=== PATIENT | male | born 1960 | race Caucasian/White ===

== ENCOUNTER 2024-03-16 07:30 | Outpatient (OUT) | payer SELFPAY | END 2024-03-16 07:31 | disposition home or self-care (01) | LOC: PST 07:30 | PROVIDERS: Visit Provider Urology | DX: Z01.818 Encounter for other preprocedural examination (principal); N40.1 Benign prostatic hyperplasia with lower urinary tract symptoms; J44.9 Chronic obstructive pulmonary disease, unspecified; I25.10 Atherosclerotic heart disease of native coronary artery without angina pectoris; I10 Essential (primary) hypertension; E78.5 Hyperlipidemia, unspecified; N52.9 Male erectile dysfunction, unspecified ==

== ENCOUNTER 2024-03-17 09:57 | Day surgery (SDC) | payer MEDICARE, SELFPAY ==
[2024-03-17] VITALS (15 sets, daily range): BP systolic 109–175; BP diastolic 62–95; PULSE 59–92; TEMP 36.1–36.8; O2SAT 93–98; BMI 27.7
[2024-03-17 10:26] LABS: INR 0.98; Partial Thromboplastin Time 28.9 sec (22.3-36.2); Prothrombin Time 10.4 sec (9.0-11.6)
[2024-03-17] MEDS: LACTATED RINGER'S SOLUTION 1,000 ML 50 ML IV (10:47)
[2024-03-17] MEDS: LEVOFLOXACIN IN DEXTROSE 5 % 500 MG/100 ML PREMIX 100 MG IV (11:16)
--- NOTE | 2024-03-17 12:20 | PM.URSON ---
Urology Surgery Operative Note Operative Note Procedure Date: 03/17/24 Time Out Performed: yes Pre-op Diagnosis: BPH with LUTS refractory to medications. Post-op Diagnosis: same as pre-op Procedures performed: 1. Cystoscopy. 2. Transurethral resection of the prostate. Anesthesia: GETA Primary Surgeon: Franck Wise Complications: None Estimated blood loss (mL): 15 Findings: Trilobar obstruction. Specimens: Prostate chips. Drains: 22 Cam[place]onian three-way coud? Caal catheter in the bladder taped to traction and CBI Indications for Procedures: This gentleman has BPH with LUTS. He has been taking Flomax but the benefits have been waning rapidly. Endoscopically he is obstructed in a trilobar fashion. Urodynamically he is also obstructed. He is strongly desirous for TURP. He has signed an informed consent after risks were explained. Some of these risks include bleeding, infection, anesthesia, urinary incontinence both temporary and permanent, retrograde ejaculation, erectile dysfunction, and possible need for further operations. Detailed description of Procedure: The patient was brought to the operating room and placed on the operating room table in the supine position. SCDs were placed on the lower extremities and turned on and functioning during the entire case. Timeout was done by all parties in the room. We all agreed upon the patient's identification and the planned procedures for this patient. Genn. anesthesia was then administered. The patient was then repositioned into the modified dorsal lithotomy position. All pressure points were satisfactorily padded. Genitalia were sterilely prepped and draped in usual fashion. I started by passing a 26 [place] Chet resectoscope with a standard bipolar loop electrode per urethra and into the bladder. The ureteral orifices were marked with a loop electrode. I then uniformly resected the median lobe down to the bladder neck level. I then resected posteriorly from the bladder neck to the Pilar level. I then resected the left lateral lobe similarly from the bladder neck to the Veru level. The right lateral lobe and the anterior tissue were then resected similarly. The scope was brought back to the apex. The apex was still coapting and I uniformly resected these portions of the lateral lobes to relieve the obstruction. The Ilich evacuator was used to get the chips out of the bladder and these were sent for permanent sections. The resection bed was coagulated. Upon completion, with the scope at the Veru, the prostatic urethra and bladder neck were now wide open. There was no bleeding. There were no chips remaining in the bladder. The scope was then removed. I then placed a 22 Cam[place]onian three-way coud? Caal catheter in the bladder. It was manually irrigated. 30 cc of fluid was placed in the balloon. CBI was started. It was taped to traction and it irrigated clear. The anesthetic was then reversed. He was then transferred to a [place] bed and wheeled to PACU in stable condition. Urinary Catheter Management Urinary Catheter Management 3-way Urethral: Cath placed during this visit: no
[2024-03-17] MEDS: SOLIFENACIN SUCCINATE 10 MG TABLET PO (12:34)
[2024-03-17] MEDS: 0.9 % SODIUM CHLORIDE 1,000 ML 80 ML IV (12:41)
[2024-03-17] MEDS: SODIUM CHLORIDE IRRIG SOLUTION 3,000 ML 3000 ML IRR ×4 (13:45→18:18)
[2024-03-17] MEDS: METOPROLOL TARTRATE 25 MG TABLET 12.5 MG PO (21:16)
[2024-03-17] MEDS: CEFAZOLIN SODIUM/DEXTROSE,ISO 1 GM/50 ML PREMIX IV (21:16)
[2024-03-18] MEDS: SODIUM CHLORIDE IRRIG SOLUTION 3,000 ML 3000 ML IRR ×2 (00:11→03:38)
[2024-03-18] MEDS: 0.9 % SODIUM CHLORIDE 1,000 ML 80 ML IV (00:22)
[2024-03-18 03:00] VITALS: BP 124/75; PULSE 86; TEMP 36.4; O2SAT 93
[2024-03-18] MEDS: CEFAZOLIN SODIUM/DEXTROSE,ISO 1 GM/50 ML PREMIX IV (03:38)
--- NOTE | 2024-03-18 05:15 | PC.NURSE ---
0500 traction tape removed from left thigh at this time. Continuous bladder irrigation weaned to off at this time. Continuous bladder irrigation removed from catheter. Catheter plug in place to where continuos bladder irrigation was infusing.
[2024-03-18 07:00] VITALS: BP 161/77; PULSE 64; TEMP 36.6; O2SAT 95
[2024-03-18] MEDS: SOLIFENACIN SUCCINATE 10 MG TABLET PO (08:12)
[2024-03-18] MEDS: METOPROLOL TARTRATE 25 MG TABLET 12.5 MG PO (08:12)
[2024-03-18] MEDS: LISINOPRIL 20 MG TABLET PO (08:12)
[2024-03-18] MEDS: ASPIRIN 81 MG TABLET.DR PO (08:12)
== END 2024-03-18 08:55 | disposition home or self-care (01) ==
LOC: SURGOUT 12:16 → MS 12:47
PROVIDERS: Visit Provider Urology
PROC: (CPT 52601; principal; 2024-03-17 11:10)
DX: N40.1 Benign prostatic hyperplasia with lower urinary tract symptoms (principal); C61 Malignant neoplasm of prostate; J44.9 Chronic obstructive pulmonary disease, unspecified; I25.10 Atherosclerotic heart disease of native coronary artery without angina pectoris; I10 Essential (primary) hypertension; E78.5 Hyperlipidemia, unspecified; Z79.84 Long term (current) use of oral hypoglycemic drugs; F17.290 Nicotine dependence, other tobacco product, uncomplicated; Z95.1 Presence of aortocoronary bypass graft; G47.33 Obstructive sleep apnea (adult) (pediatric); I25.2 Old myocardial infarction; Z95.5 Presence of coronary angioplasty implant and graft; R97.20 Elevated prostate specific antigen [PSA]; N52.9 Male erectile dysfunction, unspecified
CPT/HCPCS: 52601; 36415; 85610; 85730; 88305; 96365; 96366; J0131; J0690; J1100; J2250; J2405; J2704; J3010